=== PATIENT | female | born 1975 | race Caucasian/White ===

== ENCOUNTER 2017-08-11 10:47 | Observation (INO) ==
[2017-08-11] MEDS ORDERED: *HR* HYDROmorphone (PF) 1 MG/ML SYRINGE IVP PRN ×2 (11:37→20:49)
[2017-08-11] MEDS ORDERED: Ondansetron 4 MG/2 ML VIAL IVP PRN ×2 (11:37→20:49)
[2017-08-11] MEDS ORDERED: *HR* Promethazine 25 MG/ML VIAL IVP PRN ×2 (11:37→20:49)
[2017-08-11] MEDS ORDERED: Ketorolac 15 MG/ML VIAL IVP PRN ×2 (11:37→20:49)
[2017-08-11] MEDS ORDERED: Naloxone 0.4 MG/ML INJ IVP PRN ×2 (11:37→20:49)
[2017-08-11] MEDS ORDERED: 0.9 % Sodium Chloride 1,000 ML IVC SCH (11:45)
[2017-08-11] MEDS ORDERED: Metoprolol XL (24 HR) Succ 50 MG TAB.ER.24H PO SCH ×2 (11:45→11:52)
--- NOTE | 2017-08-11 11:54 | Urology History & Physical ---
Date of Encounter: 08/11/17 Time of Encounter: 11:52 Assessment and Plan (1) Left nephrolithiasis Current Visit: No Status: Acute 42-year-old woman with a distal left ureteral stone and severe left flank pain. I will admit her for pain control. I contacted the OR and a lateral on for a left ureteroscopy, laser lithotripsy, and stent placement today. She was informed of the risks of the procedure including but not limited to bleeding, infection, injury to other structures, need for further procedures, stent irritation, incomplete fragmentation, ureteral perforation, need for nephrostomy tube, need for open repair, risks unforeseen, and the risk of anesthesia. She is willing to proceed. History of Present Illness Chief complaint: Left flank pain HPI: Ms. Fletcher is a 42 year old female who presents with a one-week history of left flank pain. She was given some Macrobid and had a urinalysis which showed some blood. Her pain became worse and she went to [facility]. She had CT scans done on August 04, 2017 and August 08, 2017. There is evidence of progression of the stone from her left kidney down to the left ureterovesical junction which was seen on the 08/08/2017 study. She is still having flank pain. She notes nausea. She reports having a stone about 7 years ago which passed on its own. She wishes to have her stone treated. Past Med Surg Social Fam HX - Past Medical History Medical history: asthma, hypertension, kidney stones Psychiatric history: no psych history - Social History Smoking Status: Never smoker Smokeless Tobacco Status: No Alcohol use: rarely Drug use: none Medications and Allergies Albuterol Sulfate [Albuterol Inhaler] 2 puff IH Q4HR PRN 01/26/16 [History] DULoxetine [Cymbalta] 30 mg PO DAILY 01/26/16 [History] Diltiazem [Cardizem] 30 mg PO QID 01/26/16 [History] Gabapentin [Neurontin] 100 mg PO TID 01/26/16 [History] HYDROcodone/Acet 5/325 mg [Kayenta 5-325 mg] 1 tab PO Q4H PRN #30 tab 01/26/16 [Rx ] Ibuprofen [Motrin] 600 mg PO Q6HR PRN #40 tab 01/26/16 [Rx] Ibuprofen [Motrin] 800 mg PO TID PRN 01/26/16 [History] Metoprolol XL (24 HR) Succ [Toprol XL] 50 mg PO DAILY 01/26/16 [History] Rizatriptan Benzoate [Maxalt] 10 mg PO DAILY PRN 01/26/16 [History] Tizanidine HCl 4 mg PO Q8H PRN 01/26/16 [History] Topiramate [Topamax] 100 mg PO HS 01/26/16 [History] traZODone [TraZODone] 50 mg PO HS 01/26/16 [History] 3 Allergy/AdvReac Type Severity Reaction Status Date / Time No Known Allergies Allergy Verified 08/10/17 14:14 Review of Systems - Constitutional no chills, no fever(s) - EENT Nose, mouth and throat: no dizziness - Cardiovascular no chest pain - Respiratory no dyspnea - Gastrointestinal no nausea, no vomiting - Genitourinary Genitourinary: flank pain, no hematuria - Musculoskeletal no back pain - Integumentary no erythema, no rash - Neurological no weakness - Psychiatric no suicidal ideation - Hematologic/Lymphatic no easy bleeding - Allergic/Immunologic no wheezing Exam Initial Vital Signs Temp Pulse Resp BP Pulse Ox 98.0 F 92 16 122/78 99 08/11/17 11:22 08/11/17 11:22 08/11/17 11:22 08/11/17 11:22 08/11/17 11:22 - General physical appearance Present: well developed, well nourished, no distress - Eyes Absent: icteric - ENT Present: normal nares - Neck Present: trachea midline - Respiratory Present: normal respiratory effort - Cardiovascular Cardiovascular exam IM: RRR - Abdomen Abdomen: Present: soft Urology Results - Labs All other labs normal. - Imaging CT scan - abdomen: image reviewed CT scan - pelvis: image reviewed
[2017-08-11] MEDS ORDERED: cefTRIAXone 1,000 MG in Water for inj. (sterile) 10 ML IVP SCH (12:00)
[2017-08-11 12:54] LABS: Hematocrit 37.4 % (35.3-44.9); Hemoglobin 12.6 g/dL (11.5-15.4); Mean Corpuscular HGB Conc 33.7 g/dL (31.6-35.5); Mean Corpuscular Volume 92.1 fL (83.0-100.0); Mean Platelet Volume 11.2 fL (9.4-12.4); Platelet Count 208 K/mcL (140-400); Red Blood Count 4.06 M/mcL (3.82-4.97)
[2017-08-11 13:05] LABS: BUN/Creatinine Ratio 12 (6-26); Blood Urea Nitrogen 9 mg/dL (7-20); Calcium 8.8 mg/dL (8.6-10.8); Carbon Dioxide 26 mEq/L (19-29); Chloride 111 mEq/L (98-109); Glucose 78 mg/dL (70-99); Osmolality,Calculated 290 (280-300); Potassium 4.1 mEq/L (3.5-4.5); Sodium 141 mEq/L (136-145); eGFR For African Americans > 60 (> 60); eGFR For Non-African Americans > 60 (> 60)
[2017-08-11] MEDS ORDERED: Dexamethasone 4 MG/ML VIAL ONE (15:59)
[2017-08-11] MEDS ORDERED: Lidocaine -MPF 4% 5 ML AMPUL ONE (15:59)
[2017-08-11] MEDS ORDERED: *HR* FentaNYL (PF) 100 MCG/2 ML VIAL ONE ×2 (15:59→18:32)
[2017-08-11] MEDS ORDERED: Ondansetron 4 MG/2 ML VIAL ONE (15:59)
[2017-08-11] MEDS ORDERED: *HR* Succinylcholine 200 MG/10 ML VIAL IVP ONE ×2 (15:59→18:30)
[2017-08-11] MEDS ORDERED: Lidocaine -MPF 2% 2 ML VIAL ONE ×2 (15:59→18:30)
[2017-08-11] MEDS ORDERED: *HR* Midazolam HCl 2 MG/2 ML VIAL ONE ×2 (16:00→18:32)
[2017-08-11] MEDS ORDERED: *HR* Propofol 200 MG/20 ML VIAL IVP ONE ×3 (16:00→18:42)
--- NOTE | 2017-08-11 18:42 | Anesthesia Evaluation PreOp ---
Date of Encounter: 08/11/17 Time of Encounter: 18:40 - Past History Planned Operation: Left USE Cardiac History: HTN, Other (POTS - postural tachycardia syndrome) Pulmonary History: Asthma (mild) TENANT RELATIONS COORDINATOR History: Denies Any Significant HX Other Medical History: Denies Any Significant HX Anesthesia History: No Prior Anesthetic Complications, Past Anesthesia (tubal, uterine ablation) Alcohol Use: none Drug use: none Medications and Allergies Albuterol Sulfate [Albuterol Inhaler] 2 puff IH Q4HR PRN 01/26/16 [History] DULoxetine [Cymbalta] 30 mg PO DAILY 01/26/16 [History] Diltiazem [Cardizem] 30 mg PO QID 01/26/16 [History] Gabapentin [Neurontin] 100 - 300 mg PO HS 01/26/16 [History] Rizatriptan Benzoate [Maxalt] 10 mg PO DAILY PRN 01/26/16 [History] Tizanidine HCl 4 mg PO Q8H PRN 01/26/16 [History] Topiramate [Topamax] 100 mg PO HS 01/26/16 [History] traZODone [TraZODone] 50 mg PO HS 01/26/16 [History] Metoprolol XL (24 HR) Succ [Toprol XL] 100 mg PO DAILY 08/11/17 [History] Montelukast [Singulair] 10 mg PO DAILY 08/11/17 [History] Tamsulosin [Flomax] 0.4 mg PO DAILY 08/11/17 [History] 3 Allergy/AdvReac Type Severity Reaction Status Date / Time No Known Allergies Allergy Verified 08/10/17 14:14 - Meds/Allergy Pre-op Review Medications Reviewed: Yes Allergies Reviewed: Yes Beta Blockers on Current Med List: No Anesthesia Results - Labs 08/11/17 12:24 08/11/17 12:24 - Imaging EKG: report reviewed, image reviewed (SR) Anesthesia Exam Last Vital Signs Temp 98.4 F 08/11/17 14:59 Pulse 57 08/11/17 14:59 Resp 19 08/11/17 14:59 BP 110/75 08/11/17 14:59 Pulse Ox 98 08/11/17 14:59 Weight: 60 kg NPO (# of Hours): > 8 hrs - HEENT Pupil (Motor): Pupils equal, EOMI Mallampati: II Teeth: Normal Oral Opening: Greater than 3 - TENANT RELATIONS COORDINATOR LOC: Oriented TENANT RELATIONS COORDINATOR Motor: Normal RUE, Normal LUE, Normal RLE, Normal LLE, Normal Face - Cardiac Rhythm: Regular - Pulmonary Breath Sounds: bilateral Clear Respiratory Effort: Symmetrical Anesthesia Assess/Plan ASA Score: 2 Modified Lorraine Scale for Level of Consciousness: Cooperative, oriented, and tranquil Anesthetic Plan: General Monitoring Plan: Standard Monitors Recovery Plan: PACU
[2017-08-11] MEDS ORDERED: EPHEDrine 50 MG/ML VIAL ONE (19:18)
[2017-08-11] MEDS: *HR* HYDROmorphone (PF) 1 MG/ML SYRINGE IVP PRN ×4 (19:45→20:00)
--- NOTE | 2017-08-11 20:01 | Operative Note ---
Date of procedure: 08/11/17 Pre-op diagnosis: left distal ureteral stone Post-op diagnosis: same Procedure: Left ureteroscopic stone extraction and ureteral stent placement Anesthesia: TRISTIANA Surgeon: Jass Chavez Estimated blood loss (cc): 0 Specimen: stone Condition: stable Disposition: PACU Procedure in Detail: PROCEDURE IN DETAIL: Patient was taken back to the operating room, positioned supine on the operating table. Anesthesia was applied without complication. They were moved into dorsal lithotomy. Careful attention was maintained to cushion all pressure points for patient's safety. They were prepped and draped in sterile fashion. Time-out was performed with the proper patient and procedure. A 21-Malawian rigid cystoscope was inserted into the bladder without difficulty. Systematic examination of bladder revealed no abnormalities. The ureteral orifice was cannulated using a 5-Malawian ureteral Catheter and a zip wire was placed through the 5-Malawian and confirmed in the renal pelvis with fluoroscopy. An 8-10 dilator was then placed over the zip wire to passively dilate the ureteral orifice. A semi-rigid ureteroscope was carefully inserted into the bladder and guided into the ureteral oriface. At that point , the stone was encountered and I was able to basket extract the stone with a 1.9 basket. All stone in the ureter was removed. A 4.8 x 26 ureteral stent was placed over the zip wire under fluoroscopy without complication. The bladder was drained. The stone was sent for stone analysis. The string was left attached to the stent and secured to the patient for easy removal in approximately 72 hours
--- NOTE | 2017-08-11 20:04 | Discharge Summary ---
Date of Encounter: 08/11/17 Time of Encounter: 20:01 - Discharge Diagnosis (1) Left ureteral stone Priority: Primary Status: Resolved - Discharge Medications Prescriptions: HYDROcodone/Acet 5/325 mg [Carlisle 5-325 mg] 1 tab PO Q4H PRN #10 tab PRN Reason: Pain Phenazopyridine HCl [Pyridium] 200 mg PO TIDAC PRN #15 tab PRN Reason: burning on urination Sulfamethoxazole/Trimeth DS [Bactrim DS] 1 each PO BID #6 tablet Home Medications: Albuterol Sulfate [Albuterol Inhaler] 2 puff IH Q4HR PRN 01/26/16 [History] DULoxetine [Cymbalta] 30 mg PO DAILY 01/26/16 [History] Diltiazem [Cardizem] 30 mg PO QID 01/26/16 [History] Gabapentin [Neurontin] 100 - 300 mg PO HS 01/26/16 [History] Rizatriptan Benzoate [Maxalt] 10 mg PO DAILY PRN 01/26/16 [History] Tizanidine HCl 4 mg PO Q8H PRN 01/26/16 [History] Topiramate [Topamax] 100 mg PO HS 01/26/16 [History] traZODone [TraZODone] 50 mg PO HS 01/26/16 [History] HYDROcodone/Acet 5/325 mg [Carlisle 5-325 mg] 1 tab PO Q4H PRN #10 tab 08/11/17 [Rx ] Metoprolol XL (24 HR) Succ [Toprol Xl] 50 mg PO Q24H tab.er.24h 08/11/17 [Rx] Metoprolol XL (24 HR) Succ [Toprol Xl] 100 mg PO DAILY 08/11/17 [History] Montelukast [Singulair] 10 mg PO DAILY 08/11/17 [History] Phenazopyridine HCl [Pyridium] 200 mg PO TIDAC PRN #15 tab 08/11/17 [Rx] Sulfamethoxazole/Trimeth DS [Bactrim DS] 1 each PO BID #6 tablet 08/11/17 [Rx] Allergies/Adverse Reactions: 3 Allergy/AdvReac Type Severity Reaction Status Date / Time No Known Allergies Allergy Verified 08/10/17 14:14 Labs on day of discharge: Labs from last 24 hours 08/11/17 08/11/17 12:24 12:24 WBC 5.5 RBC 4.06 Hgb 12.6 Hct 37.4 MCV 92.1 MCH 31.0 MCHC 33.7 RDW 12.0 Plt Count 208 MPV 11.2 Sodium 141 Potassium 4.1 Chloride 111 H Carbon Dioxide 26 BUN 9 Creatinine 0.75 Est GFR ( Amer) > 60 Est GFR (Non-Af Amer) > 60 BUN/Creatinine Ratio 12 Glucose 78 Calculated Osmolality 290 Calcium 8.8 Date of admission: 08/11/17 10:48 Primary care physician: Gracie Burnett DO Discharging clinician: Jass Chavez Anticipated date of discharge: 08/11/17 - Patient Status Disposition: Home, Self-Care Condition: Good Functional capacity at discharge: independent ambulation Overall status at discharge: patient is progressing back to baseline - Discharge Instructions Follow Up With: Gracie Burnett DO [Primary Care Provider] - Wisam Caicedo MD [Partnered Physician] - (See patient instructions) Additional Instructions: Expect stent discomfort including urgency, frequency, burning on urination, light blood in the urine, flank pain during urination. This is normal. Call if excessive. Okay to remove stent after 72 hours by pulling on the string until the entire stent is removed. Expect some flank discomfort for first 24 hours after the stent is removed If unable to remove the stent at home please present to the urology office on Tuesday for stent removal. If stent is removed at home, follow-up with Dr. Caicedo in 2-4 weeks - Diet and Activity Activity: increase activity as tolerated Diet: advance to your usual diet - Hospital Course Hospital course: Ms. Fletcher is a 42 year old female admitted with a left distal ureteral stone. Status post successful extraction. plan to discharge and postoperative period - Time Spent with Patient Total time spent providing and/or coordinating discharge services: Less than 30 minutes Exam Initial Vital Signs Temp Pulse Resp BP Pulse Ox 98.0 F 92 16 122/78 99 08/11/17 11:22 08/11/17 11:22 08/11/17 11:22 08/11/17 11:22 08/11/17 11:22 - General physical appearance Present: well developed, no distress
[2017-08-11] MEDS: *HR* Promethazine 25 MG/ML VIAL IVP PRN ×2 (20:11→20:16)
--- NOTE | 2017-08-11 20:45 | Anesthesia Evaluation Post Op ---
Date of Encounter: 08/11/17 Time of Encounter: 20:30 - Vital Signs Vital Signs: Vital Signs/O2 Sat/Glucose, Most Current Temp Pulse Resp BP Pulse Ox 08/11/17 20:36 98.2 F 84 12 125/76 98 08/11/17 20:26 86 13 130/76 98 08/11/17 20:16 93 12 123/79 93 08/11/17 20:06 98.2 F 86 15 128/79 96 08/11/17 19:56 83 18 131/81 98 08/11/17 19:46 89 19 135/91 98 08/11/17 19:36 97.1 F L 83 15 127/73 99 - Lungs Lungs: Clear Ascult./Percussion - Airway Airway: Non-obstructed - Cardiovascular Regular Rate - Mental Status Mental Status: Alert & Oriented, Answers Appropriately - Pain Pain Scale: 0 Pain Scale used: Numeric (1 - 10) - Nausea Vomiting Nausea Vomiting: Not Present - Hydration Hydration: Ice chips - Discharge PostOp Status: Transfer Patient to floor Anes Supervising Prov Stmt: Pt VSS and has met criteria for discharge to home. - MD Alejandra
[2017-08-11] MEDS ORDERED: Gabapentin 100 MG CAPSULE PO SCH ×2 (21:00)
[2017-08-11] MEDS ORDERED: Topiramate 100 MG TABLET PO SCH ×2 (21:00)
[2017-08-11 23:04] VITALS: BP 129/84
[2017-08-12] MEDS ORDERED: Metoprolol XL (24 HR) Succ 50 MG TAB.ER.24H PO SCH ×2 (09:00→11:52)
[2017-08-12] MEDS ORDERED: cefTRIAXone 1,000 MG in Water for inj. (sterile) 10 ML IVP SCH (12:00)
== END 2017-08-11 22:30 | disposition home or self-care (01) ==
LOC: 3BNU
PROVIDERS: ADMIT Urology; ATTEND Urology